=== PATIENT | female | born 1960 | race Caucasian/White ===

== ENCOUNTER 2023-10-18 20:07 | Emergency (ER) | payer OTHER, MEDICAID, SELFPAY ==
[2023-10-18 20:13] VITALS: BP 159/84
--- NOTE | 2023-10-18 22:41 | ED.GENMED ---
History of Present Illness
General
Chief Complaint: Urinary Symptoms
Source: patient
Exam Limitations: none
Time Seen by Provider: 10/18/23 21:41
History of Present Illness
History of Present Illness:
This is a 63 year old female that comes in with c/o difficulty voiding. States that she has been constipated and when she gets constipated she has difficulty voiding. State that she did void here. States that she was worried about her bladder.
States that she has not moved her bowels in 2 days. Denies any fever, chills, chest pain, SOB, abd pain, nausea, vomiting, diarrhea, headache, dizziness, urinary burning
Past History
Past History
ED Past Medical History: Asthma, GERD, Seizures, Psychiatric (schizoaffective disorder, Bipolar) and Other (Urinary retention, celiac disease, irritable bowel syndrome, thyroid disorder, Back pain, Constipated)
ED Past Surgical History: Gynecological (Hysterectomy), Tonsilectomy, Urological (Bladder sling) and Other (Hernia repair, Left breast lumpectomy)
Patient has exhibited threatening behavior?: No
PSI?: No
Social History
Tobacco: Non-smoker
Alcohol: None
Drug: None
Living: with family
Family History
Family History: Negative Diabetes
Review of Systems
Review of Systems
All Other Systems: ROS reviewed and negative except as documented in HPI and ROS
Constitutional: Reports no symptoms; Denies fever or chills
EENT: Reports no symptoms
Respiratory: Reports no symptoms; Denies cough or trouble breathing
Cardiac: Reports no symptoms; Denies chest pain
ABD/GI: Reports constipated; Denies abdominal pain, nausea, vomiting or diarrhea
: Reports difficulty voiding; Denies dysuria, frequency or urgency
Musculoskeletal: Reports no symptoms
Skin: Reports no symptoms
Neurological: Reports no symptoms; Denies dizzy or headache
Psychiatric: Reports no symptoms
Phy Exam
General Physical Exam
General Presentation: no apparent distress
General age: appears stated age
General Skin: warm and dry
General Habitus: normal
General Mental: alert
General Hydration: appears well hydrated
ENT Exam
ENT Exam: TM's normal, pharynx normal and neck supple
Eye Exam
Eye Exam: EOMI
Cardiovascular Exam
Cardiovascular Exam: regular rate/rhythm, no edema, no murmur and normal peripheral pulses
Pulmonary Exam
Pulmonary Exam: lungs clear, no respiratory distress, no rales, chest non tender, no crackles, no rhonchi, no wheezing and no cough
Gastrointestinal Exam
Gastrointestinal Exam: soft, no organomegaly, no pulsatile mass, non distended and tender (Hypoactive)
Musculoskeletal Exam
Musculoskeletal Exam: full ROM and no edema
Skin Exam
Skin Exam: normal color, warm/dry, no rash and no petechia
Psychiatric Exam
Psychiatric Exam: normal mood/affect
Course
Orders/Labs/Results
Orders:
Orders
10/18/23 22:40
CR Abdomen - 1 View Urgent
Comment:
Reason For Exam: Constipation
10/18/23 23:46
Magnesium Citrate [Citroma] 300 ml .ROUTE .STK-MED ONE
10/18/23 23:48
Urinalysis Reflex To Culture Urgent
Date Specimen was Collected: 10/18/23
Time Specimen was Collected: 22:52
10/18/23 23:51
Straight cath- Treatment ONCE
Urine negative for infection.
Vital Signs
Initial and Last Documented VS:
Initial Vital Signs
Temp Pulse Resp BP Pulse Ox
98.9 F 120 19 159/84 98
10/18/23 20:13 10/18/23 20:13 10/18/23 20:13 10/18/23 20:13 10/18/23 20:13
Last Documented Vital Signs
Temp Pulse Resp BP Pulse Ox
98.9 F 102 19 126/76 97
10/18/23 20:13 10/19/23 00:00 10/19/23 00:00 10/19/23 00:00 10/19/23 00:00
MDM/Problems Addressed
Differential Diagnosis Includes:
Constipation. Urinary retention
MDM/Problems Addressed:
This is a 63 year old female that comes in with c/o difficulty voiding. States that she is constipated and has trouble urinating when this happens.
Will get urine. Bladder scan and KUB.
Back into see patient. Explained that she is constipated. Explained that she has urinary retention and why a catheter should be place. Patient is refusing the catheter and just wants to be straight cathed. States that if she has to come back then
she will take the catheter. Will give patient a bottle of Magnsium citrate for home. Patient to increase her water intake. Return with any concerns.
Chronic conditions affecting care:
Urinary retention, Constipation
Acute Exacerbation and/or Progression of Chronic Illness:
Urinary retention, Constipation
*Pulse Oximetry
Patient hypoxic: no
*EKG
Interpreted by ED Provider?: NA
Rate: EKG- N/A
*M[employer]ments Interpretation
Rate: M[employer]- N/A
*Critical Care Note
Total Time (30-74mins, 75-104mins- exclusive of procedures): Not Applicable
ED Attending Note
-
Portions of this chart may have been created with voice recognition software.� Occasional wrong word or��sound alike� substitutions may have occurred due to the inherent limitations of voice recognition software.
Discharge Plan
Departure
Patient Disposition: Home (Routine Discharge)
Date of Disposition: 10/19/23
Time of Disposition: 00:14
Patient with high blood pressure during this ER visit?: No
Condition: Good
Covid-19: Not Applicable
Discharge Problem:
Constipation, Urinary retention
Instructions: Constipation, Adult ED, Urinary retention - Discharge instructions
Prescriptions:
No Action
desloratadine [Clarinex] 5 MG tablet
5 mg PO DAILY
montelukast 10 MG tablet
10 mg PO QPM
Fanapt 12 MG tablet
24 mg PO HS
alprazolam [Xanax XR] 2 MG tablet extended release 24 hr
2 mg PO DAILY
Patient Comments:
04/09/2022: last filled 04/04/22, 30 tabs for 30 days from [facility]
levothyroxine 100 MCG tablet
100 mcg PO DAILY
tamsulosin 0.4 MG capsule
0.4 mg PO DAILY
fluticasone propion-salmeterol [Wixela Inhub] 1 DISK blister with device
1 puff inhalation R BID
albuterol sulfate 1 PUFF HFA aerosol inhaler
2 puff inhalation R Q4 PRN (Reason: sob/wheezing)
fluticasone propionate 1 SPRAY spray,suspension
2 spray intranasal DAILY
paliperidone 6 MG tablet extended release 24hr
18 mg PO DAILY
cholecalciferol (vitamin D3) 1,000 UNITS tablet
1,000 units PO HS
folic acid 1 mg tablet
1 mg PO DAILY
hydroxyzine pamoate 25 mg capsule
25 - 50 mg PO HS PRN (Reason: anxiety)
lubiprostone 24 mcg capsule
24 mcg PO BID
Referrals:
Miguel Onofre DO [Family Provider] - Call in 1-3 days for appt
Activity Restrictions/Additional Instructions:
As discussed, your urine is negative for any infection. You have been given a bottle of Magnesium citrate to help with your constipation. PLEASE DRINK THE ENTIRE BOTTLE. THIS MAY TAKE UP TO 6 HOURS TO WORK AND CAN CAUSE ABDOMINAL CRAMPING. Please
increase your water intake to 8-8oz glasses daily. You may also try drinking Prune juice mixed with apple juice in equal amount and heat and drink daily. Follow up with the family doctor for recheck. IF YOU HAVE UNABLE TO URINATE, HAVE URINARY
RETENTION AND FEEL YOU ARE NO EMPTYING YOUR BLADDER OR YOU HAVE ANY OTHER CONCERNS PLEASE RETURN TO THE EMERGENCY ROOM.
Interventions
Interventions:
*Risk Screen - Suicide Last Done: 10/18/23 20:13
*General Assessment Last Done: 10/18/23 20:13
*Neglect/Abuse Screening Last Done: 10/18/23 20:13
ED- Fall Risk Assessment Last Done: 10/18/23 21:23
*ED COVID-19 Vaccine History Last Done: 10/18/23 20:13
ED-Female Genitourinary Assessment Last Done: 10/18/23 21:23
Discharge Date and Time
Print Language: GREEK
[2023-10-18 23:55] LABS: Urine Albumin Negative (Neg - Trace); Urine Bilirubin Negative (Negative); Urine Character Clear (Clear); Urine Color Yellow; Urine Glucose Negative (Negative); Urine Ketone Negative (Negative); Urine Leukocyte Negative (Negative); Urine Nitrite Negative (Negative); Urine Occult Blood Negative (Negative); Urine Specific Gravity 1.005 (<1.030); Urine Urobilinogen Negative (Neg - 1+)
[2023-10-19] VITALS: BP 126/76
[2023-10-19] MEDS: CITROMA 300 ML PO (00:20)
--- NOTE | 2023-10-19 08:43 | CM ---
Patient requesting ride assistance to home. CM provided patient with [employer] ride.
== END 2023-10-19 00:27 | disposition home or self-care (01) ==
LOC: EMR 20:07
PROVIDERS: Clinical Nurse Specialist Family Health; EMERGENCY PHYSICIAN Emergency Medicine; FAMILY PHYSICIAN Family Medicine
DX: K59.00 Constipation, unspecified (principal); R33.9 Retention of urine, unspecified; J45.909 Unspecified asthma, uncomplicated; K21.9 Gastro-esophageal reflux disease without esophagitis; K58.9 Irritable bowel syndrome, unspecified
CPT/HCPCS: 99284; 74018; 81003